=== PATIENT | male | born 2000 | race Caucasian/White ===

== ENCOUNTER 2021-12-25 04:10 | Emergency (ER) | payer OTHER ==
[~2021-12-25] VITALS: Ht 182.9 cm; Wt 100.0 kg
[2021-12-25] MEDS ORDERED: LIDOCAINE W/EPINEPHRINE 1% 20ML VIAL As Ordered ONE (08:43)
[2021-12-25] MEDS ORDERED: LIDOCAINE W/EPINEPHRINE 1% 20ML VIAL SC ONE (08:45)
[2021-12-25] MEDS ORDERED: NEOSPORIN OINT 0.9 GM PKT TOP ONE (09:20)
[2021-12-25] MEDS ORDERED: BACI500O8 TOP (09:22)
[2021-12-25 09:31] VITALS: BP 140/81
== END 2021-12-25 09:32 | disposition home or self-care (01) ==
LOC: M ED 04:10
DX: S01.81XA Laceration without foreign body of other part of head, initial encounter (principal); W01.0XXA Fall on same level from slipping, tripping and stumbling without subsequent striking against object, initial encounter; Y92.018 Other place in single-family (private) house as the place of occurrence of the external cause